=== PATIENT | female | born 1970 | race Two or more races ===

== ENCOUNTER 2017-08-29 22:44 | Emergency (ER) | payer OTHER ==
[2017-08-29 22:52] VITALS: BP 130/86; PULSE 70; TEMP 97.7; BMI 27.2
[2017-08-30] MEDS ORDERED: KETOROLAC TROMETHAMINE 60 MG/2 ML VIAL IM ONE (00:56)
--- NOTE | 2017-08-30 00:56 | PDOC ---
History of Present Illness - General Chief Complaint: Pain Stated Complaint: KNEE INJURY Time Seen by Provider: 08/30/17 00:29 History Source: Patient Exam Limitations: No Limitations - History of Present Illness Initial Comments: CHIEF COMPLAINT: 47 y/o afebrile female c/o left knee pain s/p slip and fall yesterday. HISTORY OF PRESENT ILLNESS: The patient states her left knee "gave out" on her yesterday and she fell. Since that time it's been difficult to walk because of pain. She states it's hard to sit down on the toilet. She denies head trauma, fever/chills, LOC, neck pain, numbness/tingling in LEs, saddle anesthesia. Vital signs on arrival are within normal limits. REVIEW OF SYSTEMS: GENERAL/CONSTITUTIONAL: No fever/chills. No weakness. No weight change. MUSCULOSKELETAL: +left knee pain. No neck or back pain. SKIN: No rash or easy bruising. NEUROLOGIC: No headache, vertigo, loss of consciousness, or loss of sensation. PHYSICAL EXAM: VITAL_SIGNS: within normal limits GENERAL_APPEARANCE: alert, cooperative, no obvious discomfort. the patient is ambulatory but with limp. MENTAL_STATUS: speech clear, oriented X 3, responds appropriately to questions. NEURO: motor intact and sensory intact in injured extremity. EXTREMITIES: Minimal swelling to left knee. Pain with palpation of left medial joint line. No pain with palpation of tibial plateau. No pain with palpation of left patella. Pain with deep flexion of left knee. No erythema, warmth or streaking to left knee SKIN: warm, dry, good color. Past History - Past Medical History Allergies/Adverse Reactions: Allergies Allergy/AdvReac Type Severity Reaction Status Date / Time No Known Allergies Allergy Verified 08/29/17 22:48 Home Medications: Ambulatory Orders Carvedilol 6.25 mg PO DAILY 08/31/15 Ibuprofen [Motrin -] 600 mg PO Q6H #20 tablet 08/30/17 Anemia: No Asthma: No Cancer: No Cardiac Disorders: No CVA: No COPD: No CHF: No DVT: No Dementia: No Diabetes: No Dialysis: No GI Disorders: No Disorders: No HTN: Yes Hypercholesterolemia: No Kidney Stones: No Liver Disease: No Psychiatric Problems: No - Immunization History Immunization Up to Date: Yes - Suicide/Smoking/Psychosocial Hx Smoking Status: No Smoking History: Never smoked Have you smoked in the past 12 months: No Number of Cigarettes Smoked Daily: 0 Information on smoking cessation initiated: No Hx Alcohol Use: No Drug/Substance Use Hx: No Substance Use Type: None Hx Substance Use Treatment: No *Physical Exam - Vital Signs Last Vital Signs Temp Pulse Resp BP Pulse Ox 97.7 F 70 20 130/86 97 08/29/17 22:49 08/29/17 22:49 08/29/17 22:49 08/29/17 22:49 08/29/17 22:49 Medical Decision Making - Medical Decision Making A/P: 47 y/o female with left knee pain, most likely soft tissue injury. Will give IM toradol, MARIUSZ bandage and 1 crutch for stabilization. Provided her with an Ortho referral and rx for ibuprofen. Instructed her to not take naproxen while taking ibuprofen. Instructed her to follow RICE instructions and return to the ER with any worsening or concerning symptoms. The patient verbalizes understanding of all instructions, has no further questions and is awaiting discharge. *DC/Admit/Observation/Transfer Diagnosis at time of Disposition: Knee pain, left Qualifiers: Chronicity: acute Qualified Code(s): M25.562 - Pain in left knee - Discharge Dispostion Disposition: HOME Condition at time of disposition: Good - Prescriptions Prescriptions: Ibuprofen [Motrin -] 600 mg PO Q6H #20 tablet - Referrals Referrals: ON STAFF,NOT [Primary Care Provider] - Joe Reddy MD [Staff Physician] - Call tomorrow - Patient Instructions Printed Discharge Instructions: How To Perform RICE (Rest, Ice, Compress, Elevate), DI for Knee Pain Additional Instructions: Discharge Instructions: -Take 600mg of Ibuprofen every 6 hours with food for pain; DO NOT TAKE NAPROXEN WHILE TAKING THIS MEDICATION -Use MARIUSZ bandage for comfort -Follow RICE instructions -Call Dr. Reddy tomorrow to make follow up appointment -Return to the ER with any worsening or concerning symptoms. Instrucciones de descarga: - [place] 600 mg de ibuprofeno cada 6 horas con alimentos para el dolor; NO TOME NAPROXEN MIENTRAS DONTA MAXX MEDICAMENTO -Utilice vendaje MARIUSZ para mayor comodidad -Siga las instrucciones de RICE Llama a la Rosanne. Barry maana para hacer iain de seguimiento -Volver a la isabelle de emergencias con cualquier empeoramiento o sntomas. Print Language: [email or web address] - Post Discharge Activity
[2017-08-30] MEDS ORDERED: KETOROLAC TROMETHAMINE 60 MG/2 ML VIAL ONE (01:04)
== END 2017-08-30 02:09 | disposition home or self-care (01) ==
LOC: JER 22:44
PROC: 3E0233Z Introduction of Anti-inflammatory into Muscle, Percutaneous Approach (ICD-10-PCS; principal; 2017-08-29)
DX: M25.562 Pain in left knee (principal); W19.XXXA Unspecified fall, initial encounter; Y93.89 Activity, other specified; Y92.89 Other specified places as the place of occurrence of the external cause; Y99.8 Other external cause status
CPT/HCPCS: 99282-25

== ENCOUNTER 2020-08-06 18:06 | Emergency (ER) | payer OTHER ==
[2020-08-06 18:18] VITALS: BP 122/60; PULSE 66; BMI 29.0
[2020-08-06] MEDS ORDERED: KETOROLAC TROMETHAMINE 30 MG/1 ML VIAL IM ONE (18:46)
[2020-08-06] MEDS ORDERED: METHOCARBAMOL 500 MG TABLET PO ONE (18:46)
[2020-08-06] MEDS ORDERED: KETOROLAC TROMETHAMINE 30 MG/1 ML VIAL ONE (18:47)
[2020-08-06] MEDS ORDERED: METHOCARBAMOL 500 MG TABLET ONE (18:47)
== END 2020-08-06 20:15 | disposition home or self-care (01) ==
LOC: JERFT 18:06
PROC: 3E0233Z Introduction of Anti-inflammatory into Muscle, Percutaneous Approach (ICD-10-PCS; principal; 2020-08-06)
DX: M54.41 Lumbago with sciatica, right side (principal)
CPT/HCPCS: 72100-TC-FY; 99284-25

== ENCOUNTER 2024-02-12 23:51 | Emergency (ER) | payer BC, OTHER ==
[2024-02-13 00:07] VITALS: BP 125/82; PULSE 66; RESP 18; TEMP 97; BMI 28.2
[2024-02-13] MEDS ORDERED: LIDOCAINE 4% PATCH TP ONE (00:39)
[2024-02-13] MEDS ORDERED: ACETAMINOPHEN 325 MG TABLET (FP) ONE (00:39)
[2024-02-13] MEDS ORDERED: IBUPROFEN 400 MG TABLET (FP) PO ONE (00:39)
[2024-02-13] MEDS ORDERED: METHOCARBAMOL 500 MG TABLET ONE (00:39)
[2024-02-13] MEDS ORDERED: predniSONE 20 MG TABLET (UD) ONE (00:39)
[2024-02-13] MEDS: LIDOCAINE 4% PATCH TP ONE (00:43)
[2024-02-13] MEDS: IBUPROFEN 400 MG TABLET (FP) PO ONE (00:44)
[2024-02-13] MEDS: KETOROLAC TROMETHAMINE 30 MG/1 ML VIAL IM ONE (00:44)
[2024-02-13] MEDS: predniSONE 20 MG TABLET (UD) PO ONE (00:44)
[2024-02-13] MEDS: METHOCARBAMOL 500 MG TABLET PO ONE (00:44)
[2024-02-13] MEDS: ACETAMINOPHEN 500 MG TABLET (FP) PO ONE (00:44)
[2024-02-13] MEDS ORDERED: LIDOCAINE PATCH REMOVAL MC ONE (12:00)
== END 2024-02-13 01:32 | disposition left against medical advice (07) ==
LOC: JER 23:51
DX: M54.50 Low back pain, unspecified (principal)
CPT/HCPCS: 99283-25